=== PATIENT | female | born 1980 | race Two or more races ===

== ENCOUNTER 2018-09-23 00:49 | Emergency (ER) | payer OTHER ==
[~2018-09-23] VITALS: Ht 152.4 cm; Wt 67.0 kg
[2018-09-23 00:52] VITALS: BP 133/84
== END 2018-09-23 01:38 | disposition home or self-care (01) ==
LOC: ED 01:03
DX: T59.2X1A Toxic effect of formaldehyde, accidental (unintentional), initial encounter (principal); Y92.89 Other specified places as the place of occurrence of the external cause
CPT/HCPCS: 99281

== ENCOUNTER 2020-11-08 22:58 | Emergency (ER) | payer OTHER ==
[~2020-11-08] VITALS: Ht 152.4 cm; Wt 68.0 kg
[2020-11-08 23:33] LABS: ALANINE AMINOTRANSFERASE 35 U/L (12-78); ALBUMIN 3.3 g/dL (3.4-5.0); ANION GAP 7 mmol/L (5-15); CALCIUM 8.4 mg/dL (8.5-10.1); CHLORIDE 109 mmol/L (98-107); CREATININE 0.89 mg/dL (0.55-1.02)
[2020-11-08 23:35] LABS: ALKALINE PHOSPHATASE 94 U/L (45-117); BILIRUBIN,TOTAL 0.4 mg/dL (0.2-1.0); TOTAL PROTEIN 7.6 g/dL (6.4-8.2)
[2020-11-08 23:41] VITALS: BP 154/72
== END 2020-11-08 23:42 | disposition home or self-care (01) ==
LOC: MERGE 23:17 → ED 23:17
DX: Z00.00 Encounter for general adult medical examination without abnormal findings (principal)
CPT/HCPCS: 36415; 80053; 86705; 86706; 86803; 87340; 87806; 99283; G0475